=== PATIENT | female | born 1925 | race Caucasian/White ===

== ENCOUNTER 2017-01-03 06:37 | Emergency (ER) | payer MEDICARE, BC, OTHER ==
[~2017-01-03 06:37] MED LIST: ARICEPT ODT5 MG PO; ASAB PO; ATACAND32 MG PO; ATV.5 PO; BISR PR; BUSPAR15 M1 PO; COREG12 PO; COREG6 PO; CRESTOR5 MG PO; CYANO1000T SL; DSS PO; ELIQUIS 2.5 MG2.5 MG PO; HUMALOG SC; HUMULIN N1 ML SC; L40 PO; LAN125 PO; LEVEMFLXPN SC; LEVOTHROID75 MCG PO; LEVOTHYROXIN175 MCG PO; MELATONIN5 M1 PO; MEVACOR10 MG PO; MEVACOR40 MG PO; MIRALAXPKT PO; MULTIVITAMI1 PO; MVI PO; PEP20 PO; PLAVIX PO; REM15 PO; SPIRO25 PO; T PO; TRAZ50 PO; ULTRAM50 PO; VITC500 PO; ZOFRAN4 PO
== END 2017-01-03 07:00 | disposition expired ==
LOC: ER 06:37
DX: I46.9 Cardiac arrest, cause unspecified (principal); I11.0 Hypertensive heart disease with heart failure; I50.9 Heart failure, unspecified; Z86.73 Personal history of transient ischemic attack (TIA), and cerebral infarction without residual deficits; F03.90 Unspecified dementia, unspecified severity, without behavioral disturbance, psychotic disturbance, mood disturbance, and anxiety; Z79.899 Other long term (current) drug therapy; Z79.82 Long term (current) use of aspirin; Z79.4 Long term (current) use of insulin
CPT/HCPCS: 31720; 92950; 99285